=== PATIENT | female | born 1985 | race Two or more races ===

== ENCOUNTER 2021-11-19 16:43 | Inpatient (IN) | payer OTHER ==
[~2021-11-19] VITALS: Ht 170.2 cm; Wt 90.0 kg
[2021-11-19 17:36] LABS: Basophils # (auto) 0.1 10 ^3/uL (0-0.2); Basophils % (auto) 0.6 % (0.0-2.0); Eosinophils # (auto) 0.1 10 ^3/uL (0-0.8); Eosinophils % (auto) 0.8 % (0.0-7.0); Hematocrit 41.5 % (36.0-46.0); Hemoglobin 13.6 g/dL (12.2-16.2); Lymphocytes # (auto) 1.7 10 ^3/uL (0.4-5.4); Lymphocytes % (auto) 17.3 % (10.0-50.0); Mean Corpuscular Hemoglobin 30.9 pg (28.0-32.0); Mean Corpuscular Hgb Conc. 32.8 g/dL (32.0-36.0); Monocytes # (auto) 0.6 10 ^3/uL (0-1.3); Neutrophils # (auto) 7.5 10 ^3/uL (1.6-8.6); Neutrophils % (auto) 75.3 % (37.0-80.0); Red Blood Cells 4.41 10^6/uL (4.0-5.20); Red Cell Distribution Width 12.7 % (11.8-14.3)
[2021-11-19 17:40] LABS: Urine Bacteria NONE SEEN /hpf (None Seen); Urine Blood 3+ /uL (Negative); Urine Mucus FEW (None Seen); Urine Specific Gravity 1.031 (1.001-1.035); Urine WBC 5 /hpf (0 - 5)
[2021-11-19 17:52] LABS: Albumin 4.1 g/dL (3.4-5.0); Calcium 8.9 mg/dL (8.5-10.1); Potassium 3.6 mmol/L (3.5-5.1)
[2021-11-19 17:55] LABS: BUN/Creatinine Ratio 22.1; Bilirubin, Total 0.9 mg/dL (0.2-1.0); Total Protein 7.8 g/dL (6.4-8.2)
[2021-11-19] MEDS ORDERED: ONDANSETRON ODT 4 MG TAB PO ONE (18:30)
[2021-11-19] MEDS ORDERED: KETOROLAC TROMETH 30 MG/ML 1ML VIAL IM ONE (18:30)
[2021-11-19] MEDS ORDERED: LIDOCAINE VISCOUS 2% 15ML UD PO ONE (18:30)
[2021-11-19] MEDS ORDERED: FAMOTIDINE 20 MG TAB PO ONE (18:30)
[2021-11-19] MEDS ORDERED: MORPHINE SULFATE INJ 2 MG/ml SYRG IV PRN (23:45)
[2021-11-19] MEDS ORDERED: SODIUM CHLORIDE 0.9% 1,000 ML IV SCH (23:45)
[2021-11-19] MEDS ORDERED: ACETAMINOPHEN 325 MG TAB PO PRN (23:45)
[2021-11-19] MEDS ORDERED: ONDANSETRON HCL 4 MG/2 ML VIAL IV PRN (23:45)
[2021-11-19] MEDS ORDERED: cefTRIAXone 1GM/50ML D5W 50 ML IV ONE (23:45)
[2021-11-19] MEDS ORDERED: DOCUSATE SOD 100 MG CAP PO PRN (23:45)
[2021-11-20] VITALS (7 sets, daily range): BP systolic 99–137; BP diastolic 61–71
[2021-11-20] MEDS ORDERED: MORPHINE SULFATE INJ 2 MG/ml SYRG IV PRN
[2021-11-20] MEDS ORDERED: NITROGLYCERIN 0.4 MG SL TAB SL PRN
[2021-11-20] MEDS: HYDROcodone-ACET 5/325MG TAB PO PRN (06:11)
[2021-11-20 09:01] LABS: Basophils # (auto) 0.1 10 ^3/uL (0-0.2); Basophils % (auto) 1.1 % (0.0-2.0); Eosinophils # (auto) 0.1 10 ^3/uL (0-0.8); Eosinophils % (auto) 1.9 % (0.0-7.0); Hematocrit 40.9 % (36.0-46.0); Hemoglobin 13.5 g/dL (12.2-16.2); Lymphocytes % (auto) 27.4 % (10.0-50.0); Mean Corpuscular Hemoglobin 31.3 pg (28.0-32.0); Mean Corpuscular Volume 94.8 fL (80.0-100.0); Monocytes # (auto) 0.5 10 ^3/uL (0-1.3); Monocytes % (auto) 6.2 % (0.0-12.0); Neutrophils # (auto) 4.7 10 ^3/uL (1.6-8.6); Neutrophils % (auto) 63.4 % (37.0-80.0); Red Blood Cells 4.32 10^6/uL (4.0-5.20); Red Cell Distribution Width 12.7 % (11.8-14.3); White Blood Cell 7.5 10^3/uL (4.4-10.8)
[2021-11-20 09:21] LABS: Potassium 3.8 mmol/L (3.5-5.1)
[2021-11-20 09:28] LABS: Albumin 3.8 g/dL (3.4-5.0); BUN/Creatinine Ratio 24.6; Bilirubin, Total 0.8 mg/dL (0.2-1.0); Calcium 8.4 mg/dL (8.5-10.1); Total Protein 7.2 g/dL (6.4-8.2)
[2021-11-20] MEDS: ENOXAPARIN SOD 40 MG/0.4 ML SYRINGE SC SCH (10:11)
[2021-11-20] MEDS: cefTRIAXone 1GM/50ML D5W 50 ML IV SCH (10:11)
[2021-11-20] MEDS: FAMOTIDINE (10MG/ML) 2ML VL IV SCH ×2 (10:11→21:08)
[2021-11-20] MEDS: metroNIDAZOLE 500MG/100ML 100 ML IV SCH ×2 (14:26→21:07)
[2021-11-20 16:10] LABS: INR 1.08 (0.9-1.15); Partial Thromboplastin Time 35.5 sec (24.6-33.4)
[2021-11-21] MEDS: SODIUM CHLORIDE 0.9% 1,000 ML IV SCH ×5 (02:30→19:48)
[2021-11-21 05:00] VITALS: BP 93/52
[2021-11-21] MEDS: metroNIDAZOLE 500MG/100ML 100 ML IV SCH ×3 (06:11→21:19)
[2021-11-21 07:37] LABS: Albumin 3.3 g/dL (3.4-5.0); Calcium 8.1 mg/dL (8.5-10.1); Potassium 3.4 mmol/L (3.5-5.1)
[2021-11-21 07:41] LABS: BUN/Creatinine Ratio 18.6; Bilirubin, Total 0.7 mg/dL (0.2-1.0); Total Protein 6.5 g/dL (6.4-8.2)
[2021-11-21 09:06] VITALS: BP 111/64
[2021-11-21] MEDS ORDERED: BUPIVACAINE 0.25% INJ 50ML VIAL ONE (09:32)
[2021-11-21] MEDS ORDERED: POVIDONE IODINE 10 % TOPICAL OINT 30GM TOP ONE (09:32)
[2021-11-21] MEDS: ENOXAPARIN SOD 40 MG/0.4 ML SYRINGE SC SCH (09:39)
[2021-11-21] MEDS: FAMOTIDINE (10MG/ML) 2ML VL IV SCH ×2 (09:39→21:30)
[2021-11-21] MEDS: cefTRIAXone 1GM/50ML D5W 50 ML IV SCH (09:39)
[2021-11-21] MEDS ORDERED: MIDAZOLAM HCL 2MG/2ML 2ml VIAL (1mg/ml) ONE (10:08)
[2021-11-21] MEDS ORDERED: METOCLOPRAMIDE HCL 5MG/ml INJ 2ml VIAL ONE (10:08)
[2021-11-21] MEDS ORDERED: DexAMETHasone SOD PHOS 10MG/1ML VIAL INJ ONE (10:08)
[2021-11-21] MEDS ORDERED: ONDANSETRON HCL 4 MG/2 ML VIAL ONE (10:08)
[2021-11-21] MEDS ORDERED: fentaNYL CITRATE 100 MCG/2 ML VL ONE ×2 (10:08→10:45)
[2021-11-21] MEDS ORDERED: LIDOCAINE 2% (LOCAL ANESTH.) PF 5ml SDV ONE (10:08)
[2021-11-21] MEDS ORDERED: PROPOFOL 10 MG/ML 20 ML IV ONE (10:11)
[2021-11-21] MEDS ORDERED: NEOSTIGMINE 1 MG/ML INJ (10mg/10ML VIAL) ONE ×2 (11:12→11:27)
[2021-11-21] MEDS ORDERED: GLYCOPYRROLATE 0.2 MG/ML 1ML VIAL ONE ×2 (11:12→11:27)
[2021-11-21] MEDS: D5W/SOD CHL 0.45%/KCL 20MEQ 1,000 ML IV SCH ×2 (11:15→21:18)
[2021-11-21] MEDS ORDERED: KETOROLAC TROMETH 30 MG/ML 1ML VIAL ONE (11:26)
[2021-11-21 13:00] VITALS: BP 101/56
[2021-11-21] MEDS: HYDROcodone-ACET 5/325MG TAB PO PRN ×2 (14:09→18:48)
[2021-11-21 17:06] VITALS: BP 110/60
[2021-11-21 22:00] VITALS: BP 108/65
[2021-11-22] MEDS: D5W/SOD CHL 0.45%/KCL 20MEQ 1,000 ML IV SCH (03:55)
[2021-11-22 05:00] VITALS: BP 116/67
[2021-11-22] MEDS: metroNIDAZOLE 500MG/100ML 100 ML IV SCH (05:20)
[2021-11-22 08:00] VITALS: BP 116/73
[2021-11-22 08:42] LABS: Basophils # (auto) 0 10 ^3/uL (0-0.2); Basophils % (auto) 0.2 % (0.0-2.0); Eosinophils # (auto) 0 10 ^3/uL (0-0.8); Eosinophils % (auto) 0.1 % (0.0-7.0); Hematocrit 37.8 % (36.0-46.0); Hemoglobin 12.8 g/dL (12.2-16.2); Lymphocytes # (auto) 1.5 10 ^3/uL (0.4-5.4); Lymphocytes % (auto) 11.4 % (10.0-50.0); Mean Corpuscular Hemoglobin 31.8 pg (28.0-32.0); Mean Corpuscular Hgb Conc. 33.9 g/dL (32.0-36.0); Mean Corpuscular Volume 93.6 fL (80.0-100.0); Monocytes # (auto) 0.8 10 ^3/uL (0-1.3); Monocytes % (auto) 6.1 % (0.0-12.0); Neutrophils # (auto) 10.6 10 ^3/uL (1.6-8.6); Neutrophils % (auto) 82.2 % (37.0-80.0); Nucleated Red Blood Cells % 0.1 %; Red Blood Cells 4.04 10^6/uL (4.0-5.20); Red Cell Distribution Width 12.5 % (11.8-14.3)
[2021-11-22 09:00] VITALS: BP 116/73
[2021-11-22] MEDS: cefTRIAXone 1GM/50ML D5W 50 ML IV SCH (09:00)
[2021-11-22] MEDS: FAMOTIDINE (10MG/ML) 2ML VL IV SCH (10:14)
[2021-11-22] MEDS: ENOXAPARIN SOD 40 MG/0.4 ML SYRINGE SC SCH (10:14)
[2021-11-22] MEDS ORDERED: HYDR-4902 PO (10:20)
[2021-11-22] MEDS ORDERED: METR500T PO (10:20)
[2021-11-22] MEDS ORDERED: LEVO500T31 PO (10:20)
[2021-11-22 12:45] VITALS: BP 116/70
[2021-11-23 10:08] LABS: Hepatitis B Surface Antibody Negative (Negative)
[2021-11-23 10:41] LABS: Hepatitis A Total Antibody Positive (Negative)
[2021-11-23 13:11] LABS: Hepatitis C Antibody Negative (Negative)
== END 2021-11-22 15:33 | disposition home or self-care (01) | DRG 263 ==
LOC: ER 16:43 → OVERFLOW 23:53 → WEST WING 11-20 07:46
PROVIDERS: ADMIT Nurse Practitioner Family; ATTEND Family Medicine
PROC: 0FT44ZZ Resection of Gallbladder, Percutaneous Endoscopic Approach (ICD-10-PCS; principal; 2021-11-21 10:27)
DX: K80.00 Calculus of gallbladder with acute cholecystitis without obstruction (principal); E66.9 Obesity, unspecified; R79.89 Other specified abnormal findings of blood chemistry; Z20.822 Contact with and (suspected) exposure to COVID-19; N39.0 Urinary tract infection, site not specified; Z68.31 Body mass index [BMI] 31.0-31.9, adult
CPT/HCPCS: 36415; 76705; 78226; 80053; 81001; 81025; 82247; 83036; 83690; 85025; 85610; 85730; 86038; 86704; 86706; 86708; 86803; 86850; 86900; 86901; 87086; 87340; 96365; G0378; J0696; J1100; J1885; J2001; J2250; J2405; J2704; J3490; Q0162